=== PATIENT | female | born 1970 | race Caucasian/White ===

== ENCOUNTER 2016-08-02 22:08 | Emergency (ER) | payer BC ==
[~2016-08-02] VITALS: Wt 65.0 kg
--- NOTE | 2016-08-02 23:06 | ERA ---
ER Documentation Chief Complaint Date/Time DATE: 08/02/16 TIME: 23:06 Chief Complaint Bilateral flank pain, dysuria and hematuria HPI The patient is a 46-year-old female, presenting to the ER because of vague diffuse abdominal pain, dysuria, hematuria, polyuria for 3 days.. She has similar symptoms previously, denies fever, chills, neck pain, chest pain, diarrhea, constipation. She does not smoke nor drink Past medical history: None Past surgical history: Right inguinal herniorrhaphy ROS All systems reviewed and are negative except as per history of present illness. Medications Home Meds Active Scripts Ibuprofen* (Ibuprofen*) 600 Mg Tablet, 600 MG PO Q6, #20 TAB Prov:FRANCIE HAIRSTON MD 08/03/16 Ciprofloxacin Hcl* (Ciprofloxacin Hcl*) 500 Mg Tablet, 500 MG PO BID for 10 Days , TAB Prov:FRANCIE HAIRSTON MD 08/03/16 Allergies Allergies: Coded Allergies: No Known Allergy (Unverified , 08/02/16) PMhx/Soc History of Surgery: No Anesthesia Reaction: No Hx Cardiac Disorders: No Hx Psychiatric Problems: No Hx Miscellaneous Medical Probl: No Hx Alcohol Use: No Hx Substance Use: No Hx Tobacco Use: No Smoking Status: Never smoker Physical Exam Vitals Vital Signs Date Time Temp Pulse Resp B/P Pulse Ox O2 Delivery O2 Flow Rate FiO2 08/02/16 22:15 97.8 88 20 170/79 100 Physical Exam Const: No acute distress. Head: Atraumatic. Eyes: Normal Conjunctiva. ENT: Normal External Ears, Nose and Mouth. Neck: Full range of motion. No meningismus. Resp: Clear to auscultation bilaterally. Cardio: Regular rate and rhythm. Abd: Soft, non distended, normal bowel sounds, vague and diffuse abdominal tenderness, mild bilateral CVA tenderness Skin: No petechiae or rashes. Back: No midline or flank tenderness. Ext: No cyanosis, or edema. Neur: Awake and alert. No focal deficit Psych: Normal Mood and Affect. Result Diagram: 08/02/16 2351 08/02/16 2351 Results 24 hrs Laboratory Tests Test 08/02/16 23:51 08/03/16 01:48 White Blood Count 8.110^3/ul Red Blood Count 4.2910^6/ul Hemoglobin 11.2g/dl Hematocrit 34.4% Mean Corpuscular Volume 80.2fl Mean Corpuscular Hemoglobin 26.1pg Mean Corpuscular Hemoglobin Concent 32.6g/dl Red Cell Distribution Width 17.2% Platelet Count 17973^3/UL Mean Platelet Volume 10.6fl Neutrophils % 54.9% Lymphocytes % 31.8% Monocytes % 9.7% Eosinophils % 3.0% Basophils % 0.5% Nucleated Red Blood Cells % 0.0/100WBC Neutrophils # 4.410^3/ul Lymphocytes # 2.610^3/ul Monocytes # 0.810^3/ul Eosinophils # 0.210^3/ul Basophils # 0.010^3/ul Nucleated Red Blood Cells # 0.010^3/ul Sodium Level 141mmol/L Potassium Level 4.1mmol/L Chloride Level 107mmol/L Carbon Dioxide Level 23mmol/L Anion Gap 15 Blood Urea Nitrogen 12mg/dl Creatinine 0.78mg/dl Glucose Level 90mg/dl Calcium Level 9.0mg/dl Total Bilirubin 0.4mg/dl Direct Bilirubin 0.00mg/dl Indirect Bilirubin 0.4mg/dl Aspartate Amino Transf (AST/SGOT) 34IU/L Alanine Aminotransferase (ALT/SGPT) 35IU/L Alkaline Phosphatase 81IU/L Total Protein 7.6g/dl Albumin 4.5g/dl Globulin 3.10g/dl Albumin/Globulin Ratio 1.45 Lipase 230U/L Bedside Urine pH (LAB) 5.0 Bedside Urine Protein (LAB) 1+ Bedside Urine Glucose (UA) 0.1% Bedside Urine Ketones (LAB) Negative Bedside Urine Blood Trace-lysed Bedside Urine Nitrite (LAB) Positive Bedside Urine Leukocyte Esterase (L 1+ Current Medications Medications (Trade) Dose Ordered Sig/Stephan Route PRN Reason Start Time Stop Time Status Last Admin Dose Admin Sodium Chloride (NS) 1,000 ml @ 1,000 mls/hr Q1H STAT IV 08/02/16 23:12 08/03/16 00:11 DC 08/03/16 00:02 Morphine Sulfate (morphine) 4 mg ONCE STAT IV 08/02/16 23:12 08/02/16 23:14 DC 08/03/16 00:01 Ondansetron HCl (Zofran Inj) 4 mg ONCE STAT IV 08/02/16 23:12 08/02/16 23:14 DC 08/03/16 00:01 Ciprofloxacin (Cipro) 500 mg ONCE ONCE PO 08/03/16 02:30 08/03/16 02:31 DC 08/03/16 02:40 Procedures/MDM [place] [id number] Radiology Main Line: [phone] DIAGNOSTIC IMAGING REPORT Patient: JIAN PARKER : 1970 Age: 46 Sex: F MR #: [id number] DOS: 08/02/16 2312 Ordering MD: FRANCIE HAIRSTON MD Location: [facility] Room/Bed: PROCEDURE: CT of the abdomen and pelvis without contrast CLINICAL INDICATION: Abdominal Pain. TECHNIQUE: Spiral CT images through the abdomen and pelvis without the use of contrast. The administered radiation dose is CTDI 9.33 and DLP 544.55. One or more of the following dose reduction techniques were used: automated exposure control, adjustment of the mA and/or kV according to patient size, or use of iterative reconstruction technique. COMPARISON: None FINDINGS: Lack of oral and intravenous contrast somewhat limits evaluation. Slight dependent atelectasis of the lung bases is seen. No pleural effusion is seen. 4 mm right middle lobe lung nodule. The liver is slightly enlarged, measuring 17.7 cm in length. There is mild diffuse hepatic steatosis. The spleen is normal in size. The heart size is minimally prominent. There is a lobulated fluid density structure in the subdiaphragmatic region on the left measuring 7.4 x 4.7 cm. This is between the stomach and spleen. The adrenals, kidneys, and pancreas are unremarkable in appearance. Air is seen in a probable duodenal diverticulum. Small fat- containing umbilical hernia.. . There is no evidence for bowel obstruction, free air, or abscess. The appendix is normal in appearance. cervical ring or pessary is seen in place. The left ovary slightly prominent in size and there is a 1.9 cm probable left ovarian follicle. The uterus, right adnexal region, and urinary bladder are unremarkable in appearance. Few colonic diverticula are seen. There is no evidence for diverticulitis. No adenopathy or ascites is seen. There is mild degenerative change of the spine. IMPRESSION: Slightly prominent left ovarian size with 1.9 cm probable left ovarian follicle. Lobulated fluid density structure in the left subdiaphragmatic region. This may be the sequela of prior trauma or infection or related to prior pancreatitis although there is not CT evidence of chronic pancreatitis changes. Congenital peritoneal cyst is also possible. Slightly enlarged liver with mild diffuse hepatic steatosis. Incidental 4 mm right middle lobe lung nodule.. RPTAT: HLBE Brianne Bautista Physician Date Time Electronically viewed and signed by Brianne Bautista Physician on 08/03/2016 03 :01 LE/ CC: FRANCIE HAIRSTON MD MEDICAL MAKING DECISION: Patient is a 46-year-old female, presenting with acute bilateral pyelonephritis, right middle lobe lung nodule. He was treated with 1 L normal saline for clinical dehydration, morphine 4 million, IV for pain, Zofran 4 mg IV for nausea and Cipro p.o. for bilateral nephritis with good response The differential diagnoses considered include but are not limited to cholelithiasis, cholecystitis, cystitis, pancreatitis, hepatitis, gastritis, peptic ulcer disease, gastric ulcer, appendicitis, diverticulitis, cholangitis, choledocholithiasis, partial small bowel obstruction. Departure Diagnosis: Primary Impression: Pyelonephritis Additional Impressions: Lung nodule Anemia Condition: Good Comments She was discharged with Cipro and Motrin I discussed the findings with the patient. I advised the patient to follow-up with the primary physician and rn concurrent review in about 1-2 days, sooner if needed and return if any concern. The patient's blood pressure was elevated (>120/80) but appears stable without evidence of hypertension emergency or urgency. The patient was counseled about the risks of hypertension and urged to pursue outpatient monitoring and therapy within a week with their primary care physician. FRANCIE HAIRSTON MD Aug 02, 2016 23:06
[2016-08-02] MEDS ORDERED: SOD CHLORIDE 0.9% 1,000 ML IV STA (23:12)
[2016-08-02] MEDS ORDERED: morphine 4 MG/ML VIAL IV STA (23:12)
[2016-08-02] MEDS ORDERED: ONDANSETRON 4 MG INJ IV STA (23:12)
[2016-08-03 00:20] LABS: ADD SCAN DIFF NO
[2016-08-03 00:21] LABS: BASOPHILS % 0.5 % (0.0-2.0); EOSINOPHILS # 0.2 10^3/ul (0.0-0.5); HEMATOCRIT 34.4 % (37.0-47.0); HEMOGLOBIN 11.2 g/dl (12.0-16.0); LYMPHOCYTES # 2.6 10^3/ul (0.8-2.9); LYMPHOCYTES % 31.8 % (15.0-51.0); MEAN CORPUSCULAR HEMOGLOBIN 26.1 pg (29.0-33.0); MEAN CORPUSCULAR HGB CONC 32.6 g/dl (32.0-37.0); MEAN CORPUSCULAR VOLUME 80.2 fl (82.0-101.0); MEAN PLATELET VOLUME 10.6 fl (7.4-10.4); MONOCYTE # 0.8 10^3/ul (0.3-0.9); MONOCYTES % 9.7 % (0.0-11.0); NEUTROPHIL # 4.4 10^3/ul (1.6-7.5); NEUTROPHILS % 54.9 % (39.0-77.0); PLATELET COUNT 269 10^3/UL (140-415); RED BLOOD COUNT 4.29 10^6/ul (4.20-5.40); RED CELL DISTRIBUTION WIDTH 17.2 % (11.5-14.5); WHITE BLOOD COUNT 8.1 10^3/ul (4.8-10.8)
[2016-08-03 00:46] LABS: ALBUMIN 4.5 g/dl (3.3-4.9); ALBUMIN/GLOBULIN RATIO 1.45; BILIRUBIN,INDIRECT 0.4 mg/dl (0-1.1); BILIRUBIN,TOTAL 0.4 mg/dl (0.2-1.3); CREATININE 0.78 mg/dl (0.44-1.00); POTASSIUM 4.1 mmol/L (3.5-5.1); TOTAL PROTEIN 7.6 g/dl (6.1-8.1)
[2016-08-03 01:44] LABS: URINE BLOOD (Dip) POC Trace-lysed (NEGATIVE)
[2016-08-03] MEDS ORDERED: CIPROFLOXACIN 500 MG TAB PO ONE (02:30)
--- NOTE | 2016-08-03 03:02 | RADRPT ---
PROCEDURE: CT of the abdomen and pelvis without contrast CLINICAL INDICATION: Abdominal Pain. TECHNIQUE: Spiral CT images through the abdomen and pelvis without the use of contrast. The admin istered radiation dose is CTDI 9.33 and DLP 544.55. One or more of the following dose reduction yudith hniques were used: automated exposure control, adjustment of the mA and/or kV according to patient s ize, or use of iterative reconstruction technique. COMPARISON: None FINDINGS: Lack of oral and intravenous contrast somewhat limits evaluation. Slight dependent atelectasis of the lung bases is seen. No pleural effusion is seen. 4 mm right middle lobe lung nodule. The liver is slightly enlarged, measuring 17.7 cm in length. There is mild diffuse hepatic steatosi s. The spleen is normal in size. The heart size is minimally prominent. There is a lobulated flui d density structure in the subdiaphragmatic region on the left measuring 7.4 x 4.7 cm. This is betw een the stomach and spleen. The adrenals, kidneys, and pancreas are unremarkable in appearance. r is seen in a probable duodenal diverticulum. Small fat-containing umbilical hernia.. . There is no evidence for bowel obstruction, free air, or abscess. The appendix is normal in appearance. ce rvical ring or pessary is seen in place. The left ovary slightly prominent in size and there is a 1 .9 cm probable left ovarian follicle. The uterus, right adnexal region, and urinary bladder are unr emarkable in appearance. Few colonic diverticula are seen. There is no evidence for diverticulitis . No adenopathy or ascites is seen. There is mild degenerative change of the spine. IMPRESSION: Slightly prominent left ovarian size with 1.9 cm probable left ovarian follicle. Lobulated fluid density structure in the left subdiaphragmatic region. This may be the sequela of p rior trauma or infection or related to prior pancreatitis although there is not CT evidence of chron ic pancreatitis changes. Congenital peritoneal cyst is also possible. Slightly enlarged liver with mild diffuse hepatic steatosis. Incidental 4 mm right middle lobe lung nodule.. RPTAT: HLBE Brianne Bautista, Physician Date Time Electronically viewed and signed by Brianne Bautista, Physician on 08/03/2016 03:01 FIFI/
[2016-08-03] MEDS ORDERED: IBUP-1542 PO (03:11)
[2016-08-03] MEDS ORDERED: CIPR500T4 PO (03:11)
== END 2016-08-03 03:39 | disposition home or self-care (01) ==
LOC: FTE 22:08
DX: N12 Tubulo-interstitial nephritis, not specified as acute or chronic (principal); R91.1 Solitary pulmonary nodule; D64.9 Anemia, unspecified; R11.0 Nausea
CPT/HCPCS: 74176; 80053; 81003; 83690; 85025; J2270; J2405; J7030; 36415; 96374; 96375

== ENCOUNTER 2016-09-11 04:56 | Emergency (ER) | payer BC ==
[~2016-09-11] VITALS: Ht 152.4 cm; Wt 59.1 kg
[~2016-09-11 04:56] MED LIST: CIPR500T4 PO; IBUP-1542 PO
[2016-09-11 05:02] VITALS: Ht 152.4 cm; Wt 59.1 kg
[2016-09-11] MEDS ORDERED: ONDANSETRON 4 MG INJ IV STA (05:17)
[2016-09-11] MEDS ORDERED: morphine 4 MG/ML VIAL IV STA (05:17)
[2016-09-11] MEDS ORDERED: ACETAMINOPHEN 325 MG TAB PO STA (05:17)
[2016-09-11] MEDS ORDERED: SODIUM CHLORIDE 0.9% 1L BAG IV* STA (05:17)
[2016-09-11] MEDS ORDERED: CEFTRIAXONE 1 GM/50 ML (PMX) 50 ML IVPB ONE (05:30)
[2016-09-11 06:26] LABS: BASOPHIL # 0.1 10^3/ul (0.0-0.1); BASOPHILS % 0.6 % (0.0-2.0); EOSINOPHILS # 0.2 10^3/ul (0.0-0.5); EOSINOPHILS % 1.9 % (0.0-7.0); HEMATOCRIT 39.6 % (37.0-47.0); HEMOGLOBIN 12.2 g/dl (12.0-16.0); LYMPHOCYTES # 2.2 10^3/ul (0.8-2.9); LYMPHOCYTES % 25.9 % (15.0-51.0); MEAN CORPUSCULAR HEMOGLOBIN 24.5 pg (29.0-33.0); MEAN CORPUSCULAR HGB CONC 30.8 g/dl (32.0-37.0); MEAN CORPUSCULAR VOLUME 79.5 fl (82.0-101.0); MEAN PLATELET VOLUME 10.3 fl (7.4-10.4); MONOCYTE # 0.7 10^3/ul (0.3-0.9); MONOCYTES % 8.4 % (0.0-11.0); NEUTROPHIL # 5.2 10^3/ul (1.6-7.5); NEUTROPHILS % 62.7 % (39.0-77.0); PLATELET COUNT 288 10^3/UL (140-415); RED BLOOD COUNT 4.98 10^6/ul (4.20-5.40); RED CELL DISTRIBUTION WIDTH 17.4 % (11.5-14.5); WHITE BLOOD COUNT 8.3 10^3/ul (4.8-10.8)
--- NOTE | 2016-09-11 06:35 | RADRPT ---
PROCEDURE: CT Abdomen and pelvis without contrast. CLINICAL INDICATION: Abdominal pain. TECHNIQUE: CT scan of the abdomen and pelvis was performed on a multi-detector high-resolution CT scanner. Contiguous axial images were obtained from the lung bases to the ischial tuberosities wit hout intravenous contrast. Coronal and sagittal reformatted images were also obtained. Images were reviewed on the PACS workstation. One or more of the following dose reduction techniques were used: - Automated exposure control. - Adjustment of the mA and/or kV according to patient size. - Use of iterative reconstruction technique. Exam CTD/vol = 11.68 mGy. Total exam DLP = 716.61 mGy-cm. COMPARISON: 08/03/2016. FINDINGS: Evaluation of the lung bases demonstrates mild bibasilar atelectasis.. There is a stable 4 mm subpl eural nodule within the right middle lobe. Abdomen: The liver is normal in size and diffusely low in attenuation consistent with fatty infiltr ation. There is no focal mass or dilatation of the biliary tree. The gallbladder is not distended. Again demonstrated is a hypodense structure within the left upper abdomen measuring 6.4 x 6.2 cm. The spleen, pancreas and bilateral adrenal glands are within normal limits. Bilateral kidneys are normal in size with no contour deforming mass identified. There is no radiopaque renal or ureteral calculus identified. There is moderate right and mild left-sided hydronephrosis. There is no retro peritoneal adenopathy. The abdominal aorta is of normal caliber. There is no abnormal bowel wall thickening or distension. There is no bowel obstruction or free air . A normal appendix is identified. There is no diverticulosis or diverticulitis. There is no asci landry. Pelvis: There is prolapse of the pelvic floor which contains a collapsed bladder. There is interva l removal of pessary ring. The uterus and adnexa are within normal limits. There is no significant pelvic adenopathy or free fluid. Evaluation of the osseous structures demonstrates no suspicious lytic or blastic lesion. There are d efects of bilateral pars to there is of L5 with grade 1 anterolisthesis of L5 on S1 measuring 4 mm i n AP diameter. IMPRESSION: Interval removal of pelvic pessary ring with prolapse of the pelvic floor containing a collapsed berta dder. There is resultant moderate right and mild left-sided hydronephrosis which is new compared wit h the prior study. Hypodense structure within the left upper abdomen could represent loculated fluid related to prior t rauma or pancreatitis or congenital peritoneal cyst. This is unchanged from the prior study. Fatty infiltration of the liver. Right middle lobe 4 mm subpleural nodule, unchanged. Mild bibasilar atelectasis. Bilateral pars defects of L5 with grade 1 anterolisthesis of L5 on S1. .Gabriele Zhu MD, Date Time Electronically viewed and signed by .Gabriele Zhu MD, MD on 09/11/2016 06:34 .T/
[2016-09-11 06:43] LABS: INR 0.85; PROTIME 11.6 Sec (12.2-14.2); PT RATIO 0.9
[2016-09-11 06:44] LABS: PARTIAL THROMBOPLASTIN TIME 23.3 Sec (25.0-35.0)
[2016-09-11 06:48] LABS: ALANINE AMINOTRANSFERASE 33 IU/L (13-69); ALBUMIN 4.7 g/dl (3.3-4.9); ALBUMIN/GLOBULIN RATIO 1.27; ALKALINE PHOSPHATASE 103 IU/L (42-121); ANION GAP 20 (8-16); ASPARTATE AMINO TRANSFERASE 31 IU/L (15-46); BILIRUBIN,INDIRECT 0.2 mg/dl (0-1.1); BILIRUBIN,TOTAL 0.2 mg/dl (0.2-1.3); BLOOD UREA NITROGEN 16 mg/dl (7-20); CALCIUM 8.8 mg/dl (8.4-10.2); CARBON DIOXIDE 23 mmol/L (21-31); CHLORIDE 105 mmol/L (97-110); CREATININE 0.87 mg/dl (0.44-1.00); GLUCOSE 99 mg/dl (70-220); POTASSIUM 3.8 mmol/L (3.5-5.1); SODIUM 144 mmol/L (135-144); TOTAL PROTEIN 8.4 g/dl (6.1-8.1)
[2016-09-11 06:52] LABS: ADD UMIC YES; UR ASCORBIC ACID NEGATIVE (NEGATIVE); UR BACTERIA FEW /HPF (NONE SEEN); UR BILIRUBIN (Dip) NEGATIVE (NEGATIVE); UR BLOOD (Dip) 3+ mg/dL (NEGATIVE); UR CLARITY TURBID (CLEAR); UR COLOR AMBER (YELLOW); UR GLUCOSE (Dip) NEGATIVE (NEGATIVE); UR KETONES (Dip) NEGATIVE (NEGATIVE); UR LEUKOCYTE ESTERASE (Dip) 3+ Leu/ul (NEGATIVE); UR MUCUS FEW /HPF (NONE SEEN); UR NITRITE (Dip) NEGATIVE (NEGATIVE); UR NONSQUAMOUS EPITHELIAL CELL 1 /HPF (NONE SEEN); UR RBC > 182 /HPF (0-5); UR SPECIFIC GRAVITY (Dip) 1.025 (1.003-1.030); UR SQUAMOUS EPITHELIAL CELL FEW /HPF (FEW); UR TOTAL PROTEIN (Dip) 2+ mg/dl (NEGATIVE); UR UROBILINOGEN (Dip) NEGATIVE (NEGATIVE)
[2016-09-11 07:00] LABS: TROPONIN-I < 0.012 ng/ml (0.00-0.12)
[2016-09-11] MEDS ORDERED: LORAZEPAM 2 MG INJ IV ONE (07:00)
--- NOTE | 2016-09-11 08:58 | ERD ---
ER Documentation Chief Complaint Date/Time DATE: 09/11/16 TIME: 08:55 Chief Complaint urinary retention since 2am. hx of vaginal prolapse c/o severe pain HPI This is a 46-year-old female who is here for urinary retention due to a prolapsed uterus. The patient's had a prolapse for several months and was wearing a pessary ring to help. She is no longer wearing the ring because she says it does not help. She says prolapse occurs daily and she has to push it back in however today she was unable to do so. She says she is been this way all night long has been unable to void. No vomiting diarrhea she complains of pain vaginal area no abdominal pain. Pain is described as constant severe and dull ROS All systems reviewed and are negative except as per history of present illness. Medications Home Meds Active Scripts Ibuprofen* (Ibuprofen*) 600 Mg Tablet, 600 MG PO Q6, #20 TAB Prov:FRANCIE HAIRSTON MD 08/03/16 Ciprofloxacin Hcl* (Ciprofloxacin Hcl*) 500 Mg Tablet, 500 MG PO BID for 10 Days , TAB Prov:FRANCIE HAIRSTON MD 08/03/16 Allergies Allergies: Coded Allergies: No Known Allergy (Unverified , 08/02/16) PMhx/Soc History of Surgery: No Anesthesia Reaction: No Hx Neurological Disorder: No Hx Respiratory Disorders: No Hx Cardiac Disorders: No Hx Psychiatric Problems: No Hx Miscellaneous Medical Probl: No Hx Alcohol Use: No Hx Substance Use: No Hx Tobacco Use: No Smoking Status: Never smoker FmHx Family History: No coronary disease Physical Exam Vitals Vital Signs Date Time Temp Pulse Resp B/P Pulse Ox O2 Delivery O2 Flow Rate FiO2 09/11/16 07:48 68 18 98 Room Air 09/11/16 06:10 78 18 122/96 97 Room Air 09/11/16 05:02 97.1 120 20 123/58 97 Physical Exam Const: Well-developed, well-nourished Head: Atraumatic, normocephalic Eyes: Normal Conjunctiva, PERRLA, EOMI, normal sclera, no nystagmus ENT: Normal External Ears, Nose and Mouth, moist mucus membranes. Neck: Full range of motion. No meningismus, no lymphadenopathy. Resp: Clear to auscultation bilaterally, no wheezing, rhonchi, rales Cardio: Regular rate and rhythm, no murmurs, S1 S2 present Abd: Soft, non tender x 4, non distended. Normal bowel sounds, no guarding or rebound, no pulsitile abdominal masses or bruits : Cervix is bulging out of the introitus and there is an anterior bulge to the vaginal opening. Skin: No petechiae or rashes, no ecchymosis , no maculopapular rash Back: No midline or flank tenderness Ext: No cyanosis, or edema, FROM x 4, normal inspection, neurovascularly intact x 4 Neur: Awake and alert, STR 5/5 x 4, sensation intact x 4, no focal findings, cerebellum intact Psych: Normal Mood and Affect Result Diagram: 09/11/16 0557 09/11/16 0557 Results 24 hrs Laboratory Tests Test 09/11/16 05:40 09/11/16 05:57 Urine Color AUDREY Urine Clarity TURBID Urine pH 5.0 Urine Specific [place] 1.025 Urine Ketones NEGATIVEmg/dL Urine Nitrite NEGATIVEmg/dL Urine Bilirubin NEGATIVEmg/dL Urine Urobilinogen NEGATIVEmg/dL Urine Leukocyte Esterase 3+Judy/ul Urine Microscopic RBC > 182/HPF Urine Microscopic WBC > 182/HPF Urine Squamous Epithelial Cells FEW/HPF Urine Bacteria FEW/HPF Urine Mucus FEW/HPF Urine Hemoglobin 3+mg/dL Urine Glucose NEGATIVEmg/dL Urine Total Protein 2+mg/dl White Blood Count 8.310^3/ul Red Blood Count 4.9810^6/ul Hemoglobin 12.2g/dl Hematocrit 39.6% Mean Corpuscular Volume 79.5fl Mean Corpuscular Hemoglobin 24.5pg Mean Corpuscular Hemoglobin Concent 30.8g/dl Red Cell Distribution Width 17.4% Platelet Count 61684^3/UL Mean Platelet Volume 10.3fl Neutrophils % 62.7% Lymphocytes % 25.9% Monocytes % 8.4% Eosinophils % 1.9% Basophils % 0.6% Nucleated Red Blood Cells % 0.0/100WBC Neutrophils # 5.210^3/ul Lymphocytes # 2.210^3/ul Monocytes # 0.710^3/ul Eosinophils # 0.210^3/ul Basophils # 0.110^3/ul Nucleated Red Blood Cells # 0.010^3/ul Prothrombin Time 11.6Sec Prothrombin Time Ratio 0.9 INR International Normalized Ratio 0.85 Activated Partial Thromboplast Time 23.3Sec Sodium Level 144mmol/L Potassium Level 3.8mmol/L Chloride Level 105mmol/L Carbon Dioxide Level 23mmol/L Anion Gap 20 Blood Urea Nitrogen 16mg/dl Creatinine 0.87mg/dl Glucose Level 99mg/dl Lactic Acid Level 1.1mmol/L Calcium Level 8.8mg/dl Total Bilirubin 0.2mg/dl Direct Bilirubin 0.00mg/dl Indirect Bilirubin 0.2mg/dl Aspartate Amino Transf (AST/SGOT) 31IU/L Alanine Aminotransferase (ALT/SGPT) 33IU/L Alkaline Phosphatase 103IU/L Troponin I < 0.012ng/ml Total Protein 8.4g/dl Albumin 4.7g/dl Globulin 3.70g/dl Albumin/Globulin Ratio 1.27 Current Medications Medications (Trade) Dose Ordered Sig/Stephan Route PRN Reason Start Time Stop Time Status Last Admin Dose Admin Sodium Chloride (NS) 1,830 ml BOLUS OVER 2 HOURS STAT IV* 09/11/16 05:17 09/11/16 05:19 DC 09/11/16 06:09 Acetaminophen (Tylenol Tab) 650 mg ONCE STAT PO 09/11/16 05:17 09/11/16 05:19 DC 09/11/16 06:08 Morphine Sulfate (morphine) 4 mg ONCE STAT IV 09/11/16 05:17 09/11/16 05:19 DC 09/11/16 06:09 Ondansetron HCl 4 mg 4 mg ONCE STAT IV 09/11/16 05:17 09/11/16 05:19 DC 09/11/16 06:09 Ceftriaxone Sodium (Rocephin) 50 ml @ 100 mls/hr ONCE ONCE IVPB 09/11/16 05:30 09/11/16 05:59 Cancel Lorazepam (Ativan) 1 mg ONCE ONCE IV 09/11/16 07:00 09/11/16 07:01 DC 09/11/16 06:55 Procedures/MDM PROCEDURE: CT Abdomen and pelvis without contrast. CLINICAL INDICATION: Abdominal pain. TECHNIQUE: CT scan of the abdomen and pelvis was performed on a multi- detector high-resolution CT scanner. Contiguous axial images were obtained from the lung bases to the ischial tuberosities without intravenous contrast. Coronal and sagittal reformatted images were also obtained. Images were reviewed on the PACS workstation. One or more of the following dose reduction techniques were used: - Automated exposure control. - Adjustment of the mA and/or kV according to patient size. - Use of iterative reconstruction technique. Exam CTD/vol = 11.68 mGy. Total exam DLP = 716.61 mGy-cm. COMPARISON: 08/03/2016. FINDINGS: Evaluation of the lung bases demonstrates mild bibasilar atelectasis.. There is a stable 4 mm subpleural nodule within the right middle lobe. Abdomen: The liver is normal in size and diffusely low in attenuation consistent with fatty infiltration. There is no focal mass or dilatation of the biliary tree. The gallbladder is not distended. Again demonstrated is a hypodense structure within the left upper abdomen measuring 6.4 x 6.2 cm. The spleen, pancreas and bilateral adrenal glands are within normal limits. Bilateral kidneys are normal in size with no contour deforming mass identified. There is no radiopaque renal or ureteral calculus identified. There is moderate right and mild left-sided hydronephrosis. There is no retroperitoneal adenopathy. The abdominal aorta is of normal caliber. There is no abnormal bowel wall thickening or distension. There is no bowel obstruction or free air. A normal appendix is identified. There is no diverticulosis or diverticulitis. There is no ascites. Pelvis: There is prolapse of the pelvic floor which contains a collapsed bladder. There is interval removal of pessary ring. The uterus and adnexa are within normal limits. There is no significant pelvic adenopathy or free fluid. Evaluation of the osseous structures demonstrates no suspicious lytic or blastic lesion. There are defects of bilateral pars to there is of L5 with grade 1 anterolisthesis of L5 on S1 measuring 4 mm in AP diameter. IMPRESSION: Interval removal of pelvic pessary ring with prolapse of the pelvic floor containing a collapsed bladder. There is resultant moderate right and mild left- sided hydronephrosis which is new compared with the prior study. Hypodense structure within the left upper abdomen could represent loculated fluid related to prior trauma or pancreatitis or congenital peritoneal cyst. This is unchanged from the prior study. Fatty infiltration of the liver. Right middle lobe 4 mm subpleural nodule, unchanged. Mild bibasilar atelectasis. Bilateral pars defects of L5 with grade 1 anterolisthesis of L5 on S1. .Gabriele Zhu MD, MD Date Time Electronically viewed and signed by .Gabriele Zhu MD, on 09/11/2016 06:34 .T/ CC: UYEN SADLER MD Procedure by me: Uterine prolapse reduction Steady gentle pressure was placed for 10 minutes. The cervix was able to be pushed in but not very far. There is a great deal of pain. The patient cannot tolerate the procedure due to pain even after pain medications have been given. It does seem to be some resistance in his ability to be reduced I called and spoke with [employer] CLERK. They are able to come downstairs. The patient was given Ativan to make to relax more. The catapult and arresting gear officer was able to manually reduce the uterine prolapse. At the very moment the prolapse was reduced the patient spontaneously voided all over the bed. This is evidence of relief of the postobstructive urinary outflow The patient be discharged home with follow-up with [employer]ERK as she does need surgical repair of the pelvic floor Departure Diagnosis: Primary Impression: Retention of urine Additional Impression: Uterine prolapse Condition: Stable SIVAKUMAR OTTO DO Sep 11, 2016 08:58
[2016-09-11 09:23] VITALS: BP 116/71; PULSE 62; RESP 18
[2016-09-11 10:32] LABS: UR WBC CLUMPS MODERATE /HPF (NONE SEEN)
--- NOTE | 2016-09-11 18:38 | QN ---
Documentation Comment 46 y.o with cystocele/uterine prolapse. wearing pessary but not today. prolapse reduced without difficulty. instructed to return to obgyn for follow up today. if unable to void to return to er. a/p 46 y.o with POP reduced in ER with good void fu with obgyn today. DANETTE PERAZA MD Sep 11, 2016 18:38
== END 2016-09-11 09:25 | disposition home or self-care (01) ==
LOC: E/R 04:56
DX: R33.9 Retention of urine, unspecified (principal); R40.2252 Coma scale, best verbal response, oriented, at arrival to emergency department; N81.4 Uterovaginal prolapse, unspecified; R40.2142 Coma scale, eyes open, spontaneous, at arrival to emergency department; R40.2362 Coma scale, best motor response, obeys commands, at arrival to emergency department; R10.9 Unspecified abdominal pain
CPT/HCPCS: 36415; 74176; 80053; 81001; 83605; 84484; 85025; 85610; 85730; 87040; 87086; 93005; 96374; 96375; 99285; J2060; J2270; J2405; J7030